=== PATIENT | male | born 1940 | race Native Hawaiian/Other Pacific Islander ===

== ENCOUNTER 2022-01-14 13:28 | Outpatient (CLI) | payer OTHER ==
[2022-01-14 13:54] LABS: PLATELET COUNT 108 K/uL (142-355)
[2022-01-14 14:50] LABS: POTASSIUM 4.1 mmol/L (3.6-5.2)
== END 2022-01-14 19:25 | disposition home or self-care (01) ==
LOC: LAB 13:28
PROVIDERS: ATTEND Internal Medicine
DX: I10 Essential (primary) hypertension (principal); D64.89 Other specified anemias; N40.1 Benign prostatic hyperplasia with lower urinary tract symptoms; F41.8 Other specified anxiety disorders
CPT/HCPCS: 80053; 80061; 81002; 84153; 84439; 84443; 85027

== ENCOUNTER 2022-01-19 09:46 | Outpatient (CLI) | payer OTHER | END 2022-01-19 19:49 | disposition home or self-care (01) | LOC: US 09:46 | PROVIDERS: ATTEND Internal Medicine | DX: R09.89 Other specified symptoms and signs involving the circulatory and respiratory systems (principal) ==

== ENCOUNTER 2022-04-29 12:46 | Outpatient (CLI) | payer OTHER ==
[2022-04-29 12:59] LABS: PLATELET COUNT 107 K/uL (142-355)
[2022-04-29 13:49] LABS: POTASSIUM 4.7 mmol/L (3.6-5.2)
== END 2022-04-29 19:12 | disposition home or self-care (01) ==
LOC: LAB 12:46
PROVIDERS: ATTEND Internal Medicine
DX: I10 Essential (primary) hypertension (principal)
CPT/HCPCS: 80053; 83735; 85027

== ENCOUNTER 2022-05-12 09:38 | Outpatient (CLI) | payer OTHER | END 2022-05-12 20:30 | disposition home or self-care (01) | LOC: RESP 09:38 | PROVIDERS: ATTEND Internal Medicine | DX: I10 Essential (primary) hypertension (principal) ==

== ENCOUNTER → 2022-05-26 | Outpatient (CLI) | payer OTHER | LOC: RAD 10:52 | PROVIDERS: ATTEND Internal Medicine | DX: M54.89 Other dorsalgia (principal) ==

== ENCOUNTER 2022-08-27 13:07 | Outpatient (CLI) | payer OTHER ==
[2022-08-27 13:24] LABS: PLATELET COUNT 117 K/uL (142-355)
[2022-08-27 13:52] LABS: POTASSIUM 4.7 mmol/L (3.6-5.2)
== END 2022-08-27 21:47 | disposition home or self-care (01) ==
LOC: LAB 13:07
PROVIDERS: ATTEND Internal Medicine
DX: I10 Essential (primary) hypertension (principal); F41.8 Other specified anxiety disorders
CPT/HCPCS: 80053; 80061; 81002; 83735; 84439; 84443; 85027

== ENCOUNTER 2022-12-11 11:15 | Observation (INO) | payer OTHER ==
[~2022-12-11] VITALS: Ht 170.2 cm; Wt 66.3 kg
[2022-12-11 11:20] VITALS: BP 136/77; TEMP 99.1
[2022-12-11 12:22] LABS: PLATELET COUNT 121 K/uL (142-355)
[2022-12-11 12:29] LABS: POTASSIUM 4.6 mmol/L (3.6-5.2)
[2022-12-11 16:08] VITALS: BP 167/49
[2022-12-11 16:11] VITALS: BP 148/48
[2022-12-11 16:13] VITALS: BP 166/47
[2022-12-11 20:00] VITALS: BP 186/49; TEMP 98.4
[2022-12-11 23:51] VITALS: BP 193/57; TEMP 98.6; Ht 170.2 cm; Wt 66.3 kg
[2022-12-12] VITALS: BP 182/49; TEMP 98.4
[2022-12-12 04:00] VITALS: BP 172/48; TEMP 98.3
[2022-12-12 07:15] LABS: PLATELET COUNT 110 K/uL (142-355)
[2022-12-12 07:36] LABS: POTASSIUM 4.3 mmol/L (3.6-5.2)
[2022-12-12 08:00] VITALS: BP 159/44; TEMP 98
[2022-12-12] MEDS ORDERED: MAGNESIUM400 M1 PO (08:17)
[2022-12-12] MEDS ORDERED: CENTRUM SILVER1 TA2 PO (08:17)
[2022-12-12] MEDS ORDERED: ESOM40CA PO (08:18)
[2022-12-12] MEDS ORDERED: TAMS0.4C PO (08:18)
[2022-12-12] MEDS ORDERED: HYDROCHLOROT50 MG PO (08:19)
[2022-12-12] MEDS ORDERED: SERT50TA PO (08:19)
[2022-12-12] MEDS ORDERED: BENICAR40 MG PO (08:20)
[2022-12-12] MEDS ORDERED: CLON0.1T16 PO (08:20)
[2022-12-12] MEDS ORDERED: HYDR25TA57 PO (08:20)
[2022-12-12] MEDS ORDERED: KLOR-CON M2020 MEQ PO (08:22)
[2022-12-12] MEDS ORDERED: ALPR0.2566 PO (08:22)
[2022-12-12 12:00] VITALS: BP 173/46; TEMP 97.4
== END 2022-12-12 16:20 | disposition home or self-care (01) ==
LOC: ED 11:15 → MED/SURG 16:54
PROVIDERS: Emergency Medicine; ADMIT Internal Medicine; ATTEND Internal Medicine
DX: R11.2 Nausea with vomiting, unspecified (principal); R19.7 Diarrhea, unspecified; E87.1 Hypo-osmolality and hyponatremia; I10 Essential (primary) hypertension; F41.8 Other specified anxiety disorders; K21.9 Gastro-esophageal reflux disease without esophagitis; N40.0 Benign prostatic hyperplasia without lower urinary tract symptoms; F10.10 Alcohol abuse, uncomplicated
CPT/HCPCS: 36415; 80053; 81002; 83605; 83690; 83930; 83935; 84133; 84443; 85027; 87040; 87077; 87185; 87186; 87205; 96360; 96361; 96374; 99221; 99284; G0378; J2405

== ENCOUNTER 2022-12-25 10:59 | Outpatient (CLI) | payer OTHER ==
[~2022-12-25 10:59] MED LIST: ALPR0.2566 PO; BENICAR40 MG PO; CENTRUM SILVER1 TA2 PO; CLON0.1T16 PO; ESOM40CA PO; HYDR25TA57 PO; HYDROCHLOROT50 MG PO; KLOR-CON M2020 MEQ PO; MAGNESIUM400 M1 PO; SERT50TA PO; TAMS0.4C PO
== END 2022-12-25 19:00 | disposition home or self-care (01) ==
LOC: RAD 10:59
PROVIDERS: ATTEND Internal Medicine
DX: S39.012A Strain of muscle, fascia and tendon of lower back, initial encounter (principal); Y92.89 Other specified places as the place of occurrence of the external cause